=== PATIENT | male | born 1985 | race Two or more races ===

== ENCOUNTER 2018-01-17 16:40 | Emergency (ER) | payer MEDICARE, MEDICAID ==
[~2018-01-17] VITALS: Ht 177.8 cm; Wt 124.7 kg
[2018-01-17 16:58] VITALS: BP 178/95
== END 2018-01-17 19:33 | disposition home or self-care (01) ==
LOC: ER 16:45
DX: M25.572 Pain in left ankle and joints of left foot (principal); M21.42 Flat foot [pes planus] (acquired), left foot; W01.0XXA Fall on same level from slipping, tripping and stumbling without subsequent striking against object, initial encounter; Y93.89 Activity, other specified; Y99.8 Other external cause status; Y92.89 Other specified places as the place of occurrence of the external cause
CPT/HCPCS: 73610